=== PATIENT | female | born 1940 | race Hispanic/Latino ===

== ENCOUNTER → 2020-12-20 | Outpatient (CLI) | payer OTHER | END | disposition home or self-care (01) | LOC: RAH 15:22 | PROVIDERS: ATTEND Family Medicine | DX: Z12.31 Encounter for screening mammogram for malignant neoplasm of breast (principal) | CPT/HCPCS: 77067 ==

== ENCOUNTER → 2025-07-12 | Outpatient (CLI) | payer OTHER ==
--- NOTE | 2025-07-12 14:09 | HMCIMG ---
EXAM: CT Head Without IV contrast. CLINICAL HISTORY: Other specified injuries of head, subsequent encounter TECHNIQUE: Axial computed tomography images of the head/brain without intravenous contrast. COMPARISON: None provided. FINDINGS: BRAIN: No evidence of acute hemorrhage. No mass lesion. No CT evidence for acute territorial infarct. 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 VENTRICLES: No hydrocephalus. ORBITS: The orbits are unremarkable. SINUSES AND MASTOIDS: The paranasal sinuses and mastoid air cells are clear. BONES: No fracture. SOFT TISSUES: Unremarkable. IMPRESSION: 1. Left-sided subdural hematoma or hygroma which is chronic /[place]arson
== END | disposition home or self-care (01) ==
LOC: RAH 12:27
PROVIDERS: ATTEND Family Medicine
DX: S06.5X0D Traumatic subdural hemorrhage without loss of consciousness, subsequent encounter (principal); X58.XXXD Exposure to other specified factors, subsequent encounter
CPT/HCPCS: 70450